=== PATIENT | female | born 1985 | race Caucasian/White ===

== ENCOUNTER 2020-01-28 22:17 | Emergency (ER) | payer MEDICAID ==
[~2020-01-28] VITALS: Ht 157.4 cm; Wt 61.2 kg
[2020-01-28] MEDS ORDERED: SUBOXONE 12 MG1 EACH SL (22:26)
== END 2020-01-29 00:58 | disposition home or self-care (01) ==
LOC: ED 22:17
DX: T40.1X1A Poisoning by heroin, accidental (unintentional), initial encounter (principal); Y92.89 Other specified places as the place of occurrence of the external cause

== ENCOUNTER 2021-01-24 10:51 | Emergency (ER) | payer OTHER ==
[~2021-01-24] VITALS: Wt 68.0 kg
[~2021-01-24 10:51] MED LIST: SUBOXONE 12 MG1 EACH SL
== END 2021-01-24 11:36 | disposition left against medical advice (07) ==
LOC: ED 10:51
DX: T40.1X1A Poisoning by heroin, accidental (unintentional), initial encounter (principal); F15.10 Other stimulant abuse, uncomplicated; Z79.899 Other long term (current) drug therapy; Y92.89 Other specified places as the place of occurrence of the external cause

== ENCOUNTER 2023-06-11 13:54 | Inpatient (IN) | payer SELFPAY ==
[~2023-06-11] VITALS: Ht 154.9 cm; Wt 67.8 kg
[2023-06-11 14:08] VITALS: BP 155/88
[2023-06-11] MEDS ORDERED: SODIUM CHLORIDE 0.9% 1,000 ML IV SCH (14:20)
[2023-06-11] MEDS ORDERED: ACETAMINOPHEN 325 MG TAB PO ONE (14:20)
[2023-06-11 15:12] LABS: BASO % 0.2 % (0.0-1.0); EOS % 0.2 % (1.0-4.0); HEMATOCRIT 37.9 % (37.0-47.0); LYMPH # 0.5 10*3/uL (1.3-4.4); LYMPH % 7.4 % (27.0-41.0); MEAN CELL VOLUME 85.2 fl (81.0-99.0); MEAN CORPUSCULAR HGB 26.7 pg (27.0-31.0); MEAN CORPUSCULAR HGB CONC 31.4 g/dl (33.0-37.0); MEAN PLATELET VOLUME 9.9 fl (9.6-12.3); MONO # 0.2 10*3/uL (0.1-1.0); MONO % 3.6 % (3.0-9.0); NEUT # 5.6 10*3/uL (2.3-7.9); NEUT % 88.3 % (47.0-73.0); PLATELET COUNT AUTOMATED 265 10*3/uL (130-400); RED BLOOD COUNT 4.45 10*6/uL (4.10-5.10); RED CELL DISTRI WIDTH 13.9 % (0-14.5); WHITE BLOOD COUNT 6.4 10*3/uL (4.8-10.8)
[2023-06-11 15:17] LABS: ACT PARTIAL THROMBO TIME 30.5 SECONDS (20.0-32.1)
[2023-06-11 15:25] LABS: ALKALINE PHOSPHATASE 115 U/L (46-116); BUN 8 mg/dl (9-23); CHLORIDE 100 mmol/L (98-107); LIPASE 29 U/L (12-53); POTASSIUM 3.7 mmol/L (3.4-5.1); TOTAL PROTEIN 7.9 gm/dL (6.0-8.0)
[2023-06-11 15:30] LABS: BETA-HCG, QUANT < 3.0 mIU/mL (3-10); SGPT/ALT < 7 U/L (5-49)
[2023-06-11] MEDS ORDERED: Vancomycin Hydrochloride 250 ML IV ONE (16:15)
[2023-06-11] MEDS ORDERED: Ceftriaxone Sodium 1 GM/10 ML SYR IV ONE (16:15)
[2023-06-11 17:54] VITALS: BP 121/72
[2023-06-11] MEDS ORDERED: BISACODYL 10 MG SUPP R PRN (18:20)
[2023-06-11] MEDS ORDERED: BISACODYL 5 MG TAB PO PRN (18:20)
[2023-06-11] MEDS ORDERED: Magnesium Hydroxide 30 ML UDC PO PRN (18:20)
[2023-06-11] MEDS ORDERED: Ondansetron Hydrochloride 4 MG/2 ML VIAL IV PRN (18:20)
[2023-06-11] MEDS ORDERED: ACETAMINOPHEN 650 MG SUPP R PRN (18:20)
[2023-06-11] MEDS ORDERED: ACETAMINOPHEN 325 MG TAB PO PRN (18:20)
[2023-06-11] MEDS ORDERED: METHOCARBAMOL 750 MG TAB PO PRN (19:00)
[2023-06-11] MEDS ORDERED: Dicyclomine Hydrochloride 20 MG TAB PO PRN (19:00)
[2023-06-11] MEDS ORDERED: hydrOXYzine 50 MG CAP PO PRN (19:00)
[2023-06-11 20:28] VITALS: BP 121/63
[2023-06-11 20:57] LABS: BILIRUBIN Negative (Negative); BLOOD 1+ (Negative); CLARITY Clear (Clear); COLOR Yellow (Yellow); GLUCOSE Negative (Negative); KETONE Negative (Negative); LEUKO ESTERASE 1+ (Negative); NITRITE Negative (Negative); PH 7.5 (4.5-8.0); SPECIFIC GRAVITY <= 1.005 (1.001-1.030); UROBILINOGEN 0.2 E.U./dl (0.0-1.0)
[2023-06-11 21:24] LABS: BACTERIA 3+; RBC 16-20 rbc/hpf (0-2); WBC 31-40 wbc/hpf (0-5)
[2023-06-11] MEDS ORDERED: Ropinirole Hydrochloride 0.5 MG TAB PO PRN (22:00)
[2023-06-11] MEDS ORDERED: Acetaminophen/Hydrocodone 5 MG/325 MG TABLET PO PRN (23:15)
[2023-06-11 23:37] VITALS: BP 127/78
[2023-06-12] MEDS ORDERED: Chlordiazepoxide Hydrochlori 25 MG CAP PO SCH
[2023-06-12 01:36] LABS: URINE AMPHETAMINES Positive (1000ng/ml); URINE BARBITURATES Negative (200ng/ml); URINE BENZODIAZEPINES Negative (200ng/ml); URINE CANNABINOIDS (THC) Positive (50ng/ml); URINE COCAINE Negative (300ng/ml); URINE METHADONE Negative (300ng/ml); URINE OPIATES Negative (300ng/ml); URINE PHENCYCLIDINE Negative (25ng/ml)
[2023-06-12 03:08] VITALS: BP 111/71
[2023-06-12 05:23] VITALS: BP 121/80
[2023-06-12 09:01] LABS: BASO % 0.5 % (0.0-1.0); EOS % 0.7 % (1.0-4.0); LYMPH # 0.5 10*3/uL (1.3-4.4); LYMPH % 13.2 % (27.0-41.0); MEAN CELL VOLUME 85.5 fl (81.0-99.0); MEAN CORPUSCULAR HGB 26.5 pg (27.0-31.0); MEAN PLATELET VOLUME 9.2 fl (9.6-12.3); MONO # 0.2 10*3/uL (0.1-1.0); MONO % 4.7 % (3.0-9.0); NEUT # 3.3 10*3/uL (2.3-7.9); NEUT % 80.9 % (47.0-73.0); PLATELET COUNT AUTOMATED 214 10*3/uL (130-400); RED BLOOD COUNT 4.56 10*6/uL (4.10-5.10); RED CELL DISTRI WIDTH 13.9 % (0-14.5)
[2023-06-12 09:34] LABS: ALKALINE PHOSPHATASE 106 U/L (46-116); BUN 8 mg/dl (9-23); CHLORIDE 107 mmol/L (98-107); CHOLESTEROL 132 mg/dL (<200); FREE T4 0.87 ng/dl (0.89-1.76); LDL CHOLESTEROL 74 mg/dL (9-159); POTASSIUM 3.8 mmol/L (3.4-5.1); SGPT/ALT 7 U/L (5-49); TOTAL PROTEIN 7.1 gm/dL (6.0-8.0); TRIGLYCERIDES 87 mg/dl (<150)
[2023-06-12 09:51] LABS: VITAMIN D, 25-HYDROXY 11.6 ng/mL (30-100)
[2023-06-12] MEDS ORDERED: Cefepime Hydrochloride 2 GM in SODIUM CHLORIDE 0.9% 50 ML IV SCH ×2 (10:00→22:00)
[2023-06-12] MEDS ORDERED: Enoxaparin Sodium 40 MG/0.4 ML SYR SC SCH (10:00)
[2023-06-12 10:04] VITALS: BP 130/69
[2023-06-12] MEDS ORDERED: VANCOMYCIN/WATER FOR INJ (PEG) 250 ML IV SCH (12:00)
[2023-06-12 16:51] VITALS: BP 130/69
[2023-06-12 20:00] VITALS: BP 129/74
[2023-06-13] VITALS: BP 115/65
[2023-06-13] MEDS ORDERED: Chlordiazepoxide Hydrochlori 25 MG CAP PO SCH (02:00)
[2023-06-14] MEDS ORDERED: Chlordiazepoxide Hydrochlori 25 MG CAP PO SCH (02:00)
== END 2023-06-13 00:59 | disposition left against medical advice (07) | DRG 872 ==
LOC: ED 13:54 → EDHOLD 17:25 → 4E 06-12 16:02
PROVIDERS: Emergency Medicine; Student in an Organized Health Care Education/Training Program; ADMIT Internal Medicine; ATTEND Internal Medicine
DX: A41.9 Sepsis, unspecified organism (principal); E87.1 Hypo-osmolality and hyponatremia; I38 Endocarditis, valve unspecified; D64.9 Anemia, unspecified; R73.9 Hyperglycemia, unspecified; Z53.29 Procedure and treatment not carried out because of patient's decision for other reasons; A41.89 Other specified sepsis; G40.909 Epilepsy, unspecified, not intractable, without status epilepticus; E66.09 Other obesity due to excess calories; F12.10 Cannabis abuse, uncomplicated; F15.10 Other stimulant abuse, uncomplicated; R65.20 Severe sepsis without septic shock

== ENCOUNTER 2023-09-11 06:56 | Emergency (ER) | payer OTHER ==
[~2023-09-11] VITALS: Ht 170.1 cm; Wt 65.8 kg
== END 2023-09-11 07:17 | disposition left against medical advice (07) ==
LOC: ED 06:56
DX: T40.1X1A Poisoning by heroin, accidental (unintentional), initial encounter (principal); T40.411A Poisoning by fentanyl or fentanyl analogs, accidental (unintentional), initial encounter; F17.210 Nicotine dependence, cigarettes, uncomplicated; Z79.899 Other long term (current) drug therapy; Z98.890 Other specified postprocedural states; Z53.29 Procedure and treatment not carried out because of patient's decision for other reasons; Y92.89 Other specified places as the place of occurrence of the external cause